=== PATIENT | male | born 1990 | race Caucasian/White ===

== ENCOUNTER 2019-04-08 21:20 | Emergency (ER) | payer OTHER ==
[2019-04-08 21:29] VITALS: RESP 18
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
--- NOTE | 2019-04-08 22:23 | XR ---
EXAMINATION TYPE: XR shoulder complete LT DATE OF EXAM: 04/08/2019 COMPARISON: NONE HISTORY: Shoulder pain TECHNIQUE: 3 views FINDINGS: I see no fracture nor dislocation. Joint spaces are normal. There are no pathologic calcifi cations. IMPRESSION: Negative left shoulder exam.
--- NOTE | 2019-04-08 22:24 | XR ---
EXAMINATION TYPE: XR lumbar spine 2 or 3V DATE OF EXAM: 04/08/2019 COMPARISON: NONE HISTORY: Pain TECHNIQUE: 3 views FINDINGS: Lumbar vertebra have normal spacing and alignment. Posterior elements are intact. Sacroilia c joints appear intact. There is no compression fracture. Transverse process appear normal. IMPRESSION: Negative lumbar spine exam. No fracture.
[2019-04-08] MEDS ORDERED: ACETAMINOPHEN TAB 325 MG TAB PO STA (22:47)
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
[2019-04-08 23:12] VITALS: BP 134/86; PULSE 99; TEMP 97.4
== END 2019-04-08 23:10 | disposition home or self-care (01) ==
LOC: EC 21:20
DX: S40.212A Abrasion of left shoulder, initial encounter (principal); M54.5 Low back pain; Z88.0 Allergy status to penicillin; Z88.1 Allergy status to other antibiotic agents; Z88.5 Allergy status to narcotic agent; V43.52XA Car driver injured in collision with other type car in traffic accident, initial encounter; Y93.89 Activity, other specified; Y92.410 Unspecified street and highway as the place of occurrence of the external cause
CPT/HCPCS: 70450; 71046; 72100; 72125; 99284